=== PATIENT | female | born 1960 | race Caucasian/White ===

== ENCOUNTER → 2016-12-15 | Outpatient (CLI) | payer MEDICARE ==
[~2016-12-15] MED LIST: ALBUTEROL17 G1; ALPRAZOLAM PO; ALPRAZOLAM0.5 MG; BACITRACIN30 GM TOP; BACTRIM DS TABL1 TA1 PO; BUSPIRONE HCL10 M1; CENTRUM SILVER1 EAC2; COGENTIN0.5 MG; DESYREL50 MG PO; DIAZEPAM PO; DICLOFENAC; DICLOXAXILLIN250 MG PO; ERYC250 MG PO; FLEXERIL PO; GEODAN; GEODAN PO; INDERAL20 MG PO; LEVAQUIN PO; LORTAB 7.5-5001 TAB; NAPROXEN PO; PERCOCET10 PO; PERCOCET5/325 PO; PRAVACHOL; PRAVACHOL PO; PRILOSEC PO; PRILOSEC20 MG; SEROQUEL PO; SYMMETREL100 M1; TOPAMAX PO; TOPIRAMATE100 MG; ZOLPIDEM TARTRA10 MG; [UNRECOGNIZED DRUG - OTHER]
--- NOTE | ~2016-12-15 | MY11 ---
[facility] A Service of [facility] RADIOLOGY TEXT RESULTS PATIENT: SREEKANTH CARTER LOCATION: [facility] : 58 UNIT #: [id number] AGE: [address]: Navi Vela MD SEX: F ORDER DR: [id number] [address] [id number] O MR#: [id number] Acc #: [id number] NAME: SREEKANTH CARTER : 1960 SEX: F STUDY DATE/TIME: 12/15/2016 11:26 UNIT: [facility] ROOM: STUDY DESCRIPTION: MY Mammogram Screening Dig Oscar Attending Physician: Navi Vela M.D. Referring Physician: Navi Vela M.D. Ordering Physician: Navi Vela M.D. Primary Care Physician: Thad Martinez Jr., M.D. MEDICAL IMAGING REPORT This report is preliminary unless electronic signature is present. EXAM Digital screening mammogram, 12/15/2016 HISTORY 56-year-old woman no risk elevation. Annual screening. COMPARISON 04/27/2009, 11/11/2012 FINDINGS Digital imaging of each breast was completed utilizing a two-view examination of each breast in craniocaudal and mediolateral-oblique projections. Review and interpretation of digital mammograms include a second review in conjunction with FDA-approved CAD device. There is a normal parenchymal presentation bilaterally consistent with the patient's age. There are no breast masses imaged and no parenchymal asymmetry is visualized. There are no suspicious microcalcifications and I see no focal architectural disturbance. IMPRESSION Negative screening digital mammogram. One-year followup recommended. Patients over the age of 40 are entered into a reminder system with target due date for the next mammogram. A result letter will also be sent to the patient. BIRADS: 1 Negative Dictated by... Felix Duncan M.D. THIS IS AN ELECTRONICALLY VERIFIED REPORT [facility] A Service of [facility] RADIOLOGY TEXT RESULTS PATIENT: SREEKANTH CARTER LOCATION: [facility] : 58 UNIT #: [id number] AGE: [address]: Navi Vela MD SEX: F ORDER DR: Felix Duncan M.D. at 12/18/2016 10:43 AM CELSO/fuad TD: 12/18/2016 09:35 JOB #: [id number] MEDICAL IMAGING REPORT Page 1 of 1
== END | disposition home or self-care (01) ==
LOC: SMAM 10:35
DX: Z12.31 Encounter for screening mammogram for malignant neoplasm of breast (principal)
CPT/HCPCS: G0202